=== PATIENT | female | born 1945 | race Caucasian/White ===

== ENCOUNTER 2017-10-21 10:51 | Inpatient (IN) | payer OTHER ==
[2017-10-21] VITALS (7 sets, daily range): BP systolic 148–186; BP diastolic 54–82
[~2017-10-21] VITALS: Ht 162.6 cm; Wt 123.8 kg
--- NOTE | ~2017-10-21 | EKG ---
[place] [address] [facility] [place] [address] ELECTROCARDIOGRAM REPORT Name: IVORY FRIED Room #: 356-P ADM IN M.R.#: [id number] Admission: 10/21/17 Attend Phys: Angel Todd Discharge: Date of : 43 Report #: [id number] THIS REPORT FOR: //name// [facility] ED Test Date: 2017-10-21 Test Time: 11:37:46 Pat Name: IVORY FRIED Department: Room: 356 Gender: F Layboy Operator: JUAN : 1945 Requested By: Yuly Mccoy Order Number: [id number] MD: Luis Robert Measurements Intervals Homer Rate: 83 P: -24 IN: 220 QRS: 1 QRSD: 99 T: 161 QT: 360 QTc: 423 Interpretive Statements Sinus rhythm Prolonged IN interval Anteroseptal infarct, old Nonspecific lateral T-wave abnormality No previous ECG available for comparison Electronically Signed On 10-21-2017 19:27:42 CDT by Luis Robert [email or web address] <ELECTRONICALLY SIGNED> By: Luis Robert MD, [facility] 10/21/17 1927 D: [id number] Luis Robert MD, FACC /EPI
--- NOTE | ~2017-10-21 | 2DMMODE ---
[facility] [address] [place] [address] 2 D/M-MODE ECHOCARDIOGRAM Name: IVORY FRIED Room #: 170-6 ADM IN M.R.#: [id number] Admission: 10/21/17 Attend Phys: Angel Nazario Discharge: Date of : 43 Date of Service: 10/21/17 1503 Report #: [id number] THIS REPORT FOR: //name// APPROVED REPORT Study performed: 10/21/2017 13:53:30 EXAM: Comprehensive 2D, Doppler, and color-flow Echocardiogram Patient Location: ER Room #: 6 Status: routine BSA: 2.08 HR: 79 bpm Rhythm: NSR Other Information Study Quality: Adequate Technically limited study due to limited mobility, morbid obesity. Indications Dyspnea. 2D Dimensions RVDd: 41.48 mm LVEF(%): 54.16 (>50%) IVSd: 12.45 (7-11mm) LVOT Diam: 21.24 (18-24mm) LVDd: 51.36 mm PWd: 11.73 (7-11mm) LVDs: 36.89 (25-40mm) Aortic Root: 36.53 mm Hogan's LVEF: 54.16 % Volumes Left Atrial Volume (Systole) Single Plane 4CH: 107.44 mL Single Plane 2CH: 55.22 mL LA ESV Index: 44.00 mL/m2 Aortic Valve AoV Peak Duran.: 3.33 m/s AO Peak Gr.: 44.32 mmHg LVOT Max P.10 mmHg AO Mean Gr.: 26.99 mmHg AO V2 Mean: 2.49 m/s LVOT Max V: 1.01 m/s AO V2 VTI: 79.97 cm IBETH Vmax: 1.08 cm2 [facility] [place] [address] [place] [address] 2 D/M-MODE ECHOCARDIOGRAM Name: FARIHAIVORY Room #: 170-6 [facility] IN ..#: [id number] Admission: 10/21/17 Attend Phys: Angel Nazario Discharge: Date of : 43 Date of Service: 10/21/17 1503 Report #: [id number] Mitral Valve E/A Ratio: 1.1 MV Decel. Time: 225.70 ms MV E Max Duran.: 1.49 m/s MV A Duran.: 1.34 m/s MV PHT: 65.45 ms IVRT: 62.28 ms Pulmonary Valve PV Peak Duran.: 1.00 m/s PV Peak Gr.: 3.99 mmHg Pulmonary Vein P Vein S: 0.81 m/s P Vein A: 0.32 m/s P Vein D: 0.51 m/s P Vein A Dur.: 117.6 msec P Vein S/D Ratio: 1.59 Tricuspid Valve TR Peak Duran.: 2.40 m/s RAP Estimate: 5.00 mmHg TR Peak Gr.: 23.02 mmHg PA Pressure: 28.00 mmHg Left Ventricle The left ventricle is normal size. There is normal LV segmental wall motion. Mild to moderate left ventricular hypertrophy. Left ventricular systolic function is normal. LVEF is 55%. Moderate diastolic dysfunction is present (pseudonormal filling). Right Ventricle The right ventricle is normal size. The right ventricular systolic function is normal. Atria Left atrium is dilated. Right atrium is borderline dilated. Aortic Valve Aortic valve is moderately calcified. Mild aortic regurgitation. There is moderate valvular aortic stenosis. Calculated aortic valve area is 1.1 cm2 with maximum pressure gradient of 44 mmHg and mean pressure gradient of 27 mmHg. Mitral Valve Mitral valve leaflets are thickened. Moderate mitral annular calcification. Trace mitral regurgitation. Borderline mitral stenosis. Mean pressure gradient 4-5mmHg. [facility] [address] [place] [address] 2 D/M-MODE ECHOCARDIOGRAM Name: IVORY FRIED Room #: 170-6 ADM IN [facility].#: [id number] Admission: 10/21/17 Attend Phys: Angel Nazario Discharge: Date of : 43 Date of Service: 10/21/17 1503 Report #: [id number] Tricuspid Valve The tricuspid valve is normal in structure. Trace tricuspid regurgitation. Estimated PAP is 28mmHg. Pulmonic Valve The pulmonary valve is normal in structure. Trace pulmonic regurgitation. Great Vessels Aortic root is borderline dilated. IVC is normal in size and collapses >50% with inspiration. Pericardium There is no pericardial effusion. Left and right pleural effusions noted. <Conclusion> The left ventricle is normal size. LVEF is 55%. Left atrium is dilated. Right atrium is borderline dilated. Aortic valve is moderately calcified. Mild aortic regurgitation. There is moderate valvular aortic stenosis. Calculated aortic valve area is 1.1 cm2 with maximum pressure gradient of 44 mmHg and mean pressure gradient of 27 mmHg. Mitral valve leaflets are thickened. Moderate mitral annular calcification. Trace mitral regurgitation. Borderline mitral stenosis. Mean pressure gradient 4-5mmHg. The tricuspid valve is normal in structure. Trace tricuspid regurgitation. Estimated PAP is 28mmHg. The pulmonary valve is normal in structure. Trace pulmonic regurgitation. Aortic root is borderline dilated. There is no pericardial effusion. Left and right pleural effusions noted. <ELECTRONICALLY SIGNED> By: Ashish Soriano MD 10/21/17 1503 1503 1503 Ashish Soriano MD /INF
[2017-10-21 12:24] LABS: URINE BILIRUBIN NEGATIVE (Negative); URINE BLOOD NEGATIVE (Negative); URINE CLARITY CLEAR; URINE COLOR YELLOW; URINE GLUCOSE-RANDOM* 3+ (Negative); URINE KETONES NEGATIVE (Negative); URINE LEUKOCYTES NEGATIVE (Negative); URINE NITRITE NEGATIVE (Negative); URINE PROTEIN (DIPSTICK) NEGATIVE (Negative); URINE UROBILINOGEN 0.2 E.U./dl (0.2-1.0)
[2017-10-21 12:57] LABS: ANION GAP 8 mmol/L (7-16); BUN 20 mg/dL (7-18); CALCIUM 9.1 mg/dL (8.5-10.1); CHLORIDE 99 mmol/L (98-107); CO2 23 mmol/L (21-32); CREATININE 0.8 mg/dL (0.6-1.0); GLUCOSE 342 mg/dL (74-106); POTASSIUM 4.9 mmol/L (3.5-5.1); SODIUM 130 mmol/L (136-145)
[2017-10-21 13:06] LABS: TROPONIN-I < 0.04 ng/mL (<0.06)
[2017-10-21 13:54] LABS: CHOLESTEROL 193 mg/dL (<200); HDL CHOLESTEROL 72 mg/dL (>40); LDL CHOLESTEROL 92 mg/dL (<100); TC:HDL 2.7 Ratio (Not establshd); TRIGLYCERIDE 147 mg/dL (<150); VLDL 29 mg/dL (<40)
[2017-10-21 16:14] LABS: ABSOLUTE NEUTROPHILS 5.5 thou/uL (1.4-8.2); BASOPHILS 1.9 % (0.0-2.0); EOSINOPHILS 4.6 % (0.0-3.0); HEMATOCRIT 24.9 % (37.0-47.0); HEMOGLOBIN 8.4 gm/dL (12.0-15.0); LYMPHOCYTES 23.3 % (24.0-44.0); MCH 28.4 pg (26.0-34.0); MCHC 33.7 g/dL (28.0-37.0); MCV 84.3 fL (80.0-100.0); MONOCYTES 8.3 % (1.0-8.0); PLATELET COUNT 506 thou/uL (150-400); POLYS 61.9 % (36.0-66.0); RBC 2.96 mil/uL (4.20-5.00); RDW 14.3 % (10.5-14.5); WBC 8.9 thou/uL (4.0-11.0)
[2017-10-22] VITALS (8 sets, daily range): BP systolic 144–193; BP diastolic 56–93
[2017-10-22 05:08] LABS: GLYCOHEMOGLOBIN (HGB A1C) 11.3 % (4.8-5.6)
[2017-10-22 08:57] LABS: ANION GAP 6 mmol/L (7-16); BUN 19 mg/dL (7-18); CALCIUM 8.6 mg/dL (8.5-10.1); CHLORIDE 97 mmol/L (98-107); CO2 28 mmol/L (21-32); CREATININE 0.7 mg/dL (0.6-1.0); GLUCOSE 280 mg/dL (74-106); POTASSIUM 4.5 mmol/L (3.5-5.1); SODIUM 131 mmol/L (136-145)
[2017-10-22 09:06] LABS: ALBUMIN 3.2 g/dL (3.4-5.0); PHOSPHORUS 3.9 mg/dL (2.5-4.9); TROPONIN-I < 0.04 ng/mL (<0.06)
[2017-10-23] VITALS (7 sets, daily range): BP systolic 125–160; BP diastolic 33–64
[2017-10-23 06:32] LABS: HEMATOCRIT 24.1 % (37.0-47.0); MCHC 33.3 g/dL (28.0-37.0); MCV 84.1 fL (80.0-100.0); RBC 2.87 mil/uL (4.20-5.00); RDW 14.7 % (10.5-14.5); WBC 10.5 thou/uL (4.0-11.0)
[2017-10-23 06:44] LABS: CALCIUM 8.4 mg/dL (8.5-10.1); CREATININE 0.8 mg/dL (0.6-1.0); PHOSPHORUS 3.5 mg/dL (2.5-4.9); POTASSIUM 4.5 mmol/L (3.5-5.1)
[2017-10-23 06:50] LABS: % SATURATION 3 % (20-39); IRON 14 ug/dL (50-170); TIBC 425 ug/dL (250-450)
[2017-10-24 03:54] VITALS: BP 138/42
[2017-10-24 07:33] VITALS: BP 141/58
[2017-10-24 08:35] LABS: ALBUMIN 3.1 g/dL (3.4-5.0); CALCIUM 8.5 mg/dL (8.5-10.1); CREATININE 0.8 mg/dL (0.6-1.0); PHOSPHORUS 3.8 mg/dL (2.5-4.9); POTASSIUM 4.3 mmol/L (3.5-5.1)
[2017-10-24] MEDS ORDERED: CARVEDILOL3.125 MG PO (08:49)
[2017-10-24] MEDS ORDERED: LASIX 40 MG TAB40 M1 PO (08:49)
[2017-10-24] MEDS ORDERED: ASPIR 8181 MG PO (08:49)
[2017-10-24] MEDS ORDERED: GLYBURIDE 5 MG T5 M1 PO (08:49)
[2017-10-24 10:26] VITALS: BP 141/58
[2017-10-24 11:41] VITALS: BP 116/52
== END 2017-10-24 16:42 | disposition home health service (06) | DRG 292 ==
LOC: ER 10:51 → EROBS 13:36 → 3W 13:36
PROVIDERS: Emergency Medicine; Hospitalist; Registered Nurse
DX: I11.0 Hypertensive heart disease with heart failure (principal); E87.1 Hypo-osmolality and hyponatremia; Z68.42 Body mass index [BMI] 45.0-49.9, adult; I50.33 Acute on chronic diastolic (congestive) heart failure; G25.81 Restless legs syndrome; E66.9 Obesity, unspecified; Z66 Do not resuscitate; D64.9 Anemia, unspecified; I35.0 Nonrheumatic aortic (valve) stenosis; I50.9 Heart failure, unspecified; F43.20 Adjustment disorder, unspecified; E11.65 Type 2 diabetes mellitus with hyperglycemia; Z88.0 Allergy status to penicillin
CPT/HCPCS: 10779